=== PATIENT | female | born 2000 | race Two or more races ===

== ENCOUNTER 2024-12-18 20:39 | Emergency (ER) | payer OTHER ==
[~2024-12-18] VITALS: Ht 170.2 cm; Wt 70.3 kg
[2024-12-18] MEDS ORDERED: ONDANSETRON HCL 2 MG/ML VIAL IV ONE (21:45)
[2024-12-18] MEDS ORDERED: SUCRALFATE 1 G TABLET PO ONE (21:45)
[2024-12-18] MEDS ORDERED: 0.9 % SODIUM CHLORIDE 1,000 ML IV ONE (21:45)
[2024-12-18] MEDS ORDERED: FAMOtidine 10 MG/ML (4ML VIAL) IV PUSH ONE (21:45)
[2024-12-18] MEDS ORDERED: HYOSCYAMINE SULFATE 0.125 MG TAB.SUBL SL ONE (21:45)
[2024-12-18] MEDS ORDERED: HYOSCYAMINE SULFATE 0.125 MG TAB.SUBL ONE (22:03)
[2024-12-18] MEDS ORDERED: ONDANSETRON HCL 2 MG/ML VIAL ONE (22:03)
[2024-12-18] MEDS ORDERED: FAMOTIDINE/PF 20 MG/2 ML VIAL ONE (22:04)
[2024-12-18 22:32] LABS: HEMATOCRIT 38.2 % (36.0-45.00); HEMOGLOBIN 12.9 g/dL (12.0-15.00); MEAN CORPUSCULAR HEMOGLOBIN 30.5 pg (27.00-32.0); MEAN CORPUSCULAR HGB CONC 33.9 g/dl (32.0-36.0); PLATELET COUNT 281 K/uL (150-450); RED BLOOD COUNT 4.24 M/uL (4.00-6.00); RED CELL DISTRIBUTION WIDTH 13.4 % (11.5-14.5)
[2024-12-18 23:06] LABS: ALBUMIN 4.2 gm/dL (3.4-5.0); ALKALINE PHOSPHATASE 58 U/L (50-136); ALT/SGPT 18 U/L (12-78); AMYLASE 45 U/L (25-115); ANION GAP 9 (10.0-20.0); AST/SGOT 12 U/L (15-37); BLOOD UREA NITROGEN 11 mg/dL (7-18); BUN CREA RATIO 15 (7.0-25.0); CALCIUM 9.3 mg/dL (8.5-10.1); CARBON DIOXIDE 26 mEq/L (21-32); CHLORIDE 103 mmol/L (98-107); CREATININE SERUM 0.75 mg/dL (0.55-1.02); GFR 94.15; GLUCOSE FASTING 107 mg/dL (65-100); LIPASE 17 U/L (13-75); OSMOLALITY SERUM 268 MOSM/KG (275-295); POTASSIUM 4.23 mEq/L (3.5-5.1); SODIUM 134 mmol/L (136-145); TOTAL PROTEIN 8.2 gm/dL (6.4-8.2)
[2024-12-18 23:07] LABS: HCG QUANTITATIVE < 1 mUI/mL (1-3)
== END 2024-12-19 01:06 | disposition home or self-care (01) ==
LOC: ER 20:42
PROVIDERS: General Practice
DX: K29.70 Gastritis, unspecified, without bleeding (principal); R10.9 Unspecified abdominal pain